=== PATIENT | male | born 1975 | race African-American/Black ===

== ENCOUNTER 2024-01-13 00:58 | Day surgery (SDC) | payer OTHER, SELFPAY ==
[2024-01-06 16:02] VITALS: BMI 34.4
[2024-01-13 07:55] VITALS: BP 142/80; PULSE 113; RESP 20; TEMP 36.6; O2SAT 100
[2024-01-13 08:06] LABS: Glucose Point of Care 299 mg/dl (65-105)
[2024-01-13] MEDS: LACTATED RINGERS 1,000 ML 150 ML IV CONT (08:09)
--- NOTE | 2024-01-13 08:40 | WPDANESEPPF ---
Anes - Initial Pre Proc Eval Procedure: Operation Date: 01/13/24 09:00 Proposed Procedures p Screening Colonoscopy - Ethan Rivera DO Date/Time: 01/13/24 08:40 Surgeon: Ethan Rivera DO Pre Op Diagnosis: Screening for malignant neoplasm of colon Patient Data Age: 48 Gender: M Height: 1.68 m Weight: 93.1 kg Last Vital Signs Temp 36.6 C 01/13/24 07:55 Pulse 113 H 01/13/24 07:55 Resp 20 01/13/24 07:55 BP 142/80 H 01/13/24 07:55 Pulse Ox 100 01/13/24 07:55 O2 Del Method Room Air 01/13/24 07:55 Allergies Allergy/AdvReac Type Severity Reaction Status Date / Time No Known Allergies Allergy Verified 01/13/24 07:51 Home Medications Medication Instructions Recorded Confirmed Type aspirin 81 mg tablet,delayed 81 mg PO DAILY 01/06/24 01/13/24 History release atorvastatin 40 mg tablet 40 mg PO HS 01/06/24 01/13/24 History insulin NPH isoph U-100 human 100 12 unit subcut QPM 01/06/24 01/13/24 History unit/mL subcutaneous suspension insulin NPH isoph U-100 human 100 20 unit subcut QAM 01/06/24 01/13/24 History unit/mL subcutaneous suspension insulin regular human 100 unit/mL 1 sliding scale dose subcut 01/06/24 01/13/24 History injection solution USEASDIRECTD insulin regular human 100 unit/mL 6 unit subcut BID 01/06/24 01/13/24 History injection solution lisinopril 20 mg tablet 20 mg PO DAILY 01/06/24 01/13/24 History Laboratory Tests 01/13/24 08:01 POC Capillary Glucose 299 H mg/dl (65-105) Patient hx anesthesia problems: none Family hx anesthesia problems: none Results Review: All pre-operative results and documents have been reviewed as part of the pre-operative evaluation. [facility] Past Medical History Medical History (Updated 01/13/24 @ 08:40 by Amadou Kessler MD) Diabetes HTN (hypertension) Social History Social History Living arrangements: incarcerated Anes - Eval Final PreProcedure Day of Procedure 01/13/24 08:40 Patient weight: obese Heart: regular rate and rhythm Lungs: clear to auscultation Airway: Mallampati scale class II Neurological: alert and oriented Last oral intake: >/= 8 hours ASA classification: III Emergent: no Anesthetic plan: proceed Anesthesia type and monitoring: general GIVS and standard monitoring Results Review: All pre-operative results and documents have been reviewed as part of the pre-operative evaluation. Informed Consent: The patient's anesthetic plan and its attendant risks and benefits were discussed with the patient/family/POA. Questions were solicited and answers provided to the satisfaction of the patient/family/POA.
--- NOTE | 2024-01-13 08:41 | SUR.PREOP ---
DR ZAVALA NOTIFIED OF PT BLOOD SUGAR 299, NO NEW ORDERS.
--- NOTE | 2024-01-13 09:00 | P.HP_ITS ---
H&P: HPI History of Present Illness Date/Time: 01/13/24 09:00 Chief Complaint: screening for colorectal cancer Narrative: this is a 48-year-old man who presents for colonoscopy. He is an inmate at [facility]. He has never had a colonoscopy before. He denies any hematochezia or melena. He denies family history of colon cancer. Review of Systems Review of Systems: All systems reviewed & are unremarkable except as noted in HPI and below Constitutional: Constitutional: Denies chills, Denies fever(s), Denies headache(s) and Denies weight loss Eyes: Eyes: Denies change in vision ENT: Denies dizziness, Denies headache(s), Denies neck mass and Denies throat swelling Cardiovascular: Cardiovascular: Denies chest pain, Denies lightheadedness and Denies dyspnea Respiratory: Respiratory: Denies cough, Denies dyspnea and Denies wheezing Gastrointestinal: Gastrointestinal: Denies abdominal pain, Denies change in bowel habits, Denies nausea and Denies vomiting Genitourinary: Genitourinary: Denies hematuria and Denies dysuria Musculoskeletal: Musculoskeletal: Reports as per HPI Integumentary/Breasts: Skin/Breast: Reports as per HPI Neurologic: Denies dizziness and Denies headache(s) Allergic/Immunologic: Allergic/Immunologic: Denies throat swelling and Denies wheezing [facility] Past Medical History Medical History (Updated 01/13/24 @ 09:01 by Ethan Rivera DO) Diabetes HTN (hypertension) Social History Social History Living arrangements: incarcerated Meds Home Medications and Allergies Home Medications Medication Instructions Recorded Confirmed Type aspirin 81 mg tablet,delayed 81 mg PO DAILY 01/06/24 01/13/24 History release atorvastatin 40 mg tablet 40 mg PO HS 01/06/24 01/13/24 History insulin NPH isoph U-100 human 100 12 unit subcut QPM 01/06/24 01/13/24 History unit/mL subcutaneous suspension insulin NPH isoph U-100 human 100 20 unit subcut QAM 01/06/24 01/13/24 History unit/mL subcutaneous suspension insulin regular human 100 unit/mL 1 sliding scale dose subcut 01/06/24 01/13/24 History injection solution USEASDIRECTD insulin regular human 100 unit/mL 6 unit subcut BID 01/06/24 01/13/24 History injection solution lisinopril 20 mg tablet 20 mg PO DAILY 01/06/24 01/13/24 History Allergies Allergy/AdvReac Type Severity Reaction Status Date / Time No Known Allergies Allergy Verified 01/13/24 07:51 Vital Signs Vital Signs - 24 hr 01/13/24 07:55 Temperature 97.8 F Pulse Rate 113 H Respiratory Rate 20 Blood Pressure 142/80 H Pulse Oximetry 100 Oxygen Delivery Room Air Exam 2 Const: General: no acute distress and alert Orientation/consciousness: patient oriented x3 HENMT: Head: normocephalic and atraumatic Ears: hearing grossly normal bilaterally Face/Nose/Sinus: Normal nares present Mouth: Yes Normal oral and palatal mucosa present Eyes: Periorbital: periorbital findings normal Sclera: sclerae normal EOM: EOMs intact bilaterally Neck: Neck: normal visual inspection, no lymphadenopathy and trachea midline Chest: Chest palpation & inspection: normal inspection of the chest Resp: Effort & Inspection: normal respiratory effort Auscultation: clear to auscultation bilaterally Cardio: Jugular venous distension: no JVD Rate: regular rate Rhythm: regular rhythm Heart sounds: S1 normal heart sound present and S2 normal hear t sound present Peripheral pulses: Peripheral pulses 2+ throughout GI: Inspection: normal to inspection GI Palp: Yes Soft to palpation, No Tenderness to palpation present (GI), No Guarding due to palpation present (GI) and No Rebound tenderness present Percussion: Yes normal to percussion Auscultation: normal bowel sounds : General: Yes no CVA tenderness Back/Spine/Pelvis: Back: no CVA tenderness Neuro: General: patient oriented x3, no focal motor deficits and CN's II-XI intact bilaterally Cognition (Neuro): normal cognition Speech: normal speech Motor exam (neuro): 5/5 motor strength present throughout Extrem: General: capillary refill normal and no clubbing, cyanosis or edema Assessment and Plan Assessment and plan (1) Screening for colorectal cancer: Code(s): Z12.11 - Encounter for screening for malignant neoplasm of colon; Z12.12 - Encounter for screening for malignant neoplasm of rectum Status: Acute Assessment and Plan: I have recommended colonoscopy. I have discussed the procedure, risks, benefits, and alternatives. Questions were answered. Patient is agreeable to proceed.
[2024-01-13 09:28] VITALS: BP 85/51; PULSE 106; RESP 12; O2SAT 100
[2024-01-13 09:38] VITALS: BP 89/49; PULSE 101; RESP 20; O2SAT 100
[2024-01-13 09:48] VITALS: BP 109/60; PULSE 105; RESP 20; O2SAT 100
[2024-01-13 10:17] LABS: Glucose Point of Care 233 mg/dl (65-105)
== END 2024-01-13 10:05 | disposition home or self-care (01) ==
PROVIDERS: PCP Internal Medicine; Visit Provider Surgery
PROC: 0DJD8ZZ Inspection of Lower Intestinal Tract, Via Natural or Artificial Opening Endoscopic (ICD-10-PCS; CPT 45378; principal; 2024-01-13 09:00)
DX: Z12.11 Encounter for screening for malignant neoplasm of colon (principal); K62.1 Rectal polyp; E11.9 Type 2 diabetes mellitus without complications; I10 Essential (primary) hypertension; E66.9 Obesity, unspecified; Z68.33 Body mass index [BMI] 33.0-33.9, adult; Z79.4 Long term (current) use of insulin; Z79.82 Long term (current) use of aspirin
CPT/HCPCS: 45380; 82948; 88305; J2704; J7120